=== PATIENT | female | born 1980 | race Hispanic/Latino ===

== ENCOUNTER 2017-01-14 16:49 | Emergency (ER) | payer MEDICAID ==
[2017-01-14 18:00] LABS: Basophils % (Auto) 0.8 % (0.0-1.8); Eosinophils % (Auto) 4.3 % (0.0-4.3); Hematocrit 39.9 % (30.3-42.9); Hemoglobin 13.3 gm/dl (10.1-14.3); Mean Corpuscular HGB Conc 33 % (30-34); Mean Corpuscular Hemoglobin 31 pg (28-32); Mean Corpuscular Volume 91 fl (79-97); Platelet Count 213 K/mm3 (140-440); Red Blood Count 4.37 M/mm3 (3.65-5.03); Red Cell Distribution Width 15.8 % (13.2-15.2); White Blood Count 7.5 K/mm3 (4.5-11.0)
[2017-01-14 18:10] LABS: Anion Gap 19 mmol/L; Blood Urea Nitrogen 20 mg/dL (7-17); Calcium 10.1 mg/dL (8.4-10.2); Carbon Dioxide 25 mmol/L (22-30); Chloride 100.1 mmol/L (98-107); Glucose 93 mg/dL (65-100); Potassium 4.5 mmol/L (3.6-5.0); Sodium 140 mmol/L (137-145)
[2017-01-15] MEDS ORDERED: BABY ASPIRIN PO ONE (01:16)
[2017-01-15] MEDS ORDERED: PERCOCET 5/325 PO ONE (01:16)
--- NOTE | 2017-01-15 01:40 | Emergency Department Report ---
HPI - General Chief Complaint: Chest Pain Time Seen by Provider: 01/15/17 00:58 - HPI HPI: This is a 36-year-old female presents to the emergency department from home with complaint of midsternal chest pressure or "a weight sitting on my chest" that has been going on since about 10:30 AM this morning. It is associated with some shortness of breath but she denies any fever, nausea, vomiting, back pain or diaphoresis. The patient has history of anxiety and prediabetes. She has a family history of coronary artery disease with her father having an MT at age 42 years of age. She is a tobacco smoker. She took a 800 mg ibuprofen for symptoms without much relief. Her primary care doctor is Dr. Arauz. She denies any history of MT, CVA, PE/DVT. No recent travel or sick contacts at home. ED Past Medical Hx - Past Medical History Hx Headaches / Migraines: Yes (MIGRAINES) Hx Psychiatric Treatment: Yes (DEPRESSION) Hx HIV: No - Surgical History Hx Breast Surgery: Yes (RIGHT BREAST BX 05/2016) Additional Surgical History: tubal ligation, left ovary removed. LEEP - Social History Smoking Status: Current Every Day Smoker Substance Use Type: Alcohol - Medications Home Medications: Home Medications Medication Instructions Recorded Confirmed Last Taken Type Citalopram Hydrobromide [celeXA] 20 mg PO DAILY 10/24/15 06/26/16 06/25/16 09: 00 History ALPRAZolam [Xanax TAB] 0.5 mg PO QPM 06/12/16 06/26/16 Unknown History QUEtiapine [SEROquel] 25 mg PO QHS 06/12/16 06/26/16 06/25/16 19:30 History HYDROcodone/APAP 5-325 [[place] 1 each PO Q6HR PRN #30 tablet 06/26/16 Unknown Rx 5/325] Sulfamethoxazole/Trimethoprim 1 each PO BID #14 tablet 06/26/16 Unknown Rx [Bactrim DS TAB] traMADol [Ultram] 50 mg PO Q6HR PRN #10 tablet 01/15/17 Unknown Rx ED Review of Systems ROS: Stated complaint: CHEST PAIN Other details as noted in HPI Comment: All other systems reviewed and negative Constitutional: denies: chills, fever Eyes: denies: eye pain, eye discharge, vision change ENT: denies: ear pain, throat pain Respiratory: shortness of breath. denies: cough Cardiovascular: chest pain. denies: edema Gastrointestinal: denies: abdominal pain, nausea, diarrhea Genitourinary: denies: urgency, dysuria, discharge Musculoskeletal: denies: back pain, joint swelling, arthralgia Skin: denies: rash, lesions Neurological: denies: headache, weakness, paresthesias Physical Exam - Physical Exam Vital Signs: Vital Signs 01/14/17 01/15/17 17:10 01:00 Temperature 98.6 F 98.0 F Pulse Rate 75 68 Respiratory 20 16 Rate Blood Pressure 134/89 Blood Pressure 131/76 [Left] O2 Sat by Pulse 100 99 Oximetry Physical Exam: GENERAL: The patient is well-developed well-nourished. HEENT: Normocephalic. Atraumatic. Extraocular motions are intact. Patient has moist mucous membranes. Pupils equal reactive to light bilaterally. NECK: Supple. Trachea is midline. CHEST/LUNGS: Clear to auscultation. There is no respiratory distress noted. There is some tenderness to palpation to the chest wall. HEART/CARDIOVASCULAR: Regular. There is no tachycardia. There is no gallop rub or murmur. ABDOMEN: Abdomen is soft, nontender. Patient has normal bowel sounds. There is no abdominal distention. SKIN: Skin is warm and dry. NEURO: The patient is awake, alert, and oriented. The patient is cooperative. The patient has no focal neurologic deficits. The patient has normal speech. MUSCULOSKELETAL: There is no tenderness or deformity. There is no limitation range of motion. There is no evidence of acute injury. ED Course Vital Signs 01/14/17 01/15/17 17:10 01:00 Temperature 98.6 F 98.0 F Pulse Rate 75 68 Respiratory 20 16 Rate Blood Pressure 134/89 Blood Pressure 131/76 [Left] O2 Sat by Pulse 100 99 Oximetry ED Medical Decision Making - Lab Data Result diagrams: 01/14/17 17:43 01/14/17 17:38 - Radiology Data Radiology results: report reviewed, image reviewed interpreted by me: Chest x-ray did not show any acute process. Heart is normal shape and size. No effusions. No pneumothorax. No signs of pneumonia seen. CT angiography of the chest does not show any dissection, pulmonary and was more any acute process. - Medical Decision Making This is a 36-year-old female presents to the emergency department with complaint of some midsternal chest pain starting this morning. Patient was evaluated with physical exam, labs, imaging EKG. EKG is normal without ST elevation MT, ischemia or dysrhythmia. Chest x-ray does not show any acute process. Patient's labs have been mostly unremarkable including negative troponins 3. Patient had a slightly elevated and equal. D-dimer so a CT angiography of the chest was done that did not show any signs of pulmonary and was him, dissection or any acute process. Patient was given some doses of pain medication and upon reevaluation she is feeling improved. Patient has the risk factors of tobacco abuse and family history of coronary artery disease in her father. However she is very low risk from stratification. She'll be discharged home to follow up with cardiology and will return to the ER with any worsening of her symptoms or any acute distress. HEART Score for Major Cardiac Events from [email or web address] on 01/15/2017 All calculations should be rechecked by clinician prior to use RESULT SUMMARY: 2 points Low Score (0-3 points) Risk of MACE of 0.9-1.7%. INPUTS: History > Moderately suspicious EKG > Normal Age > < 45 Risk factors > 1-2 risk factors Troponin > normal limit - Differential Diagnosis MT, PE, costochondritis, GERD, pneumonia Critical Care Time: No Critical care attestation.: If time is entered above; I have spent that time in minutes in the direct care of this critically ill patient, excluding procedure time. ED Disposition Clinical Impression: Tobacco abuse Chest pain Qualifiers: Chest pain type: unspecified Qualified Code(s): R07.9 - Chest pain, unspecified Disposition: DISCHARGED TO HOME OR SELFCARE Is pt being admited?: No Condition: Good Instructions: Chest Pain (ED) Additional Instructions: Please follow-up with your primary care doctor in the next few days. I'm given you a referral for a local inspector tester sorter, Dr. Johnston, for follow-up regarding her chest discomfort and possibly for an outpatient stress test. Return to the emergency department with any worsening of your symptoms or any acute distress. You've been prescribed a medication that is sedating. Therefore this medication cannot be mixed with alcohol, or taken prior to driving, working, or being responsible for children. Prescriptions: traMADol [Ultram] 50 mg PO Q6HR PRN #10 tablet PRN Reason: Pain Referrals: PRIMARY CAREMD [Primary Care Provider] - 3-5 Days FAHAD JOHNSTON MD [Staff Physician] - 3-5 Days Time of Disposition: 04:35
[2017-01-15] MEDS ORDERED: NACL ONE (02:37)
[2017-01-15] MEDS ORDERED: DILAUDID IV ONE (03:01)
--- NOTE | 2017-01-15 03:41 | Cat Scan Report ---
FINAL REPORT EXAM: CT ANGIO CHEST HISTORY: CP, elevated dimer COMPARISON: None available. TECHNIQUE: Contiguous axial images were obtained. Additional sagittal and coronal reformatted images were obtained. Administration of IV contrast given per institution protocol. Images submitted for interpretation. Max intensity projection images. 100 cc Omnipaque 350. Heart normal in size FINDINGS: . Thoracic aorta normal in caliber. No dissection. No pulmonary embolus. No pathologically enlarged intrathoracic or axillary lymph nodes. Tracheobronchial tree is patent. No focal consolidation or pleural effusion. Visualized upper abdomen is grossly unremarkable. Bony thorax is grossly intact. IMPRESSION: No pulmonary embolus. No focal consolidation or pleural effusion.
[2017-01-15 04:39] VITALS: BP 121/69
== END 2017-01-15 04:45 | disposition home or self-care (01) ==
LOC: ED 16:49
DX: R07.9 Chest pain, unspecified (principal); G43.909 Migraine, unspecified, not intractable, without status migrainosus; F17.200 Nicotine dependence, unspecified, uncomplicated
CPT/HCPCS: 36415; 71010; 71275; 80048; 84484; 85025; 85379; 93005; 93010; 96374; 99285; J1170; Q9967

== ENCOUNTER 2017-02-04 09:02 | Outpatient (CLI) | payer MEDICAID ==
--- NOTE | 2017-02-04 09:44 | Mammography Report ---
Diagnostic right mammogram with CAD. 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 Comparison study is dated June 03, 2016. Findings: Mild postsurgical and/or postradiation architectural distortion is seen at the site of the previous resected mass. There is no evidence of recurrent mass. No suspicious micro-calcifications are seen. Impression: No suspicious findings. Expected postsurgical and postradiation changes. BI-RADS code: 2. Recommendation: Routine screening schedule.
== END 2017-02-04 09:03 | disposition home or self-care (01) ==
LOC: SPVWC 09:02
PROVIDERS: ATTEND Surgery
DX: R92.8 Other abnormal and inconclusive findings on diagnostic imaging of breast (principal); Z90.11 Acquired absence of right breast and nipple
CPT/HCPCS: G0206-RT